=== PATIENT | male | born 1950 | race Caucasian/White ===

== ENCOUNTER 2018-09-04 03:15 | Inpatient (IN) | payer MEDICARE ==
[2018-09-04] MEDS ORDERED: NITROGLYCERIN SL TABS 0.4 MG TAB SUBLINGUAL PRN ×2 (03:25→05:34)
[2018-09-04] MEDS ORDERED: HEPARIN SODIUM,PORCINE 5,000 UNIT/ML 1 ML VIAL IV ONE (03:26)
[2018-09-04] MEDS ORDERED: MORPHINE SULFATE 4 MG/ML SYRINGE IV STA ×2 (03:26→03:52)
[2018-09-04] MEDS ORDERED: HEPARIN SODIUM,PORCINE 5,000 UNIT/ML 1 ML VIAL IV PRN (03:26)
[2018-09-04] MEDS ORDERED: HEPARIN SOD,PORK IN 0.45% NACL 25,000 UNIT in 0.45% NACL 1 250ML.BAG IV SCH (03:30)
--- NOTE | 2018-09-04 03:30 | ED ---
Chest Pain HPI - General Chief Complaint: Chest Pain Stated Complaint: Stemi Time Seen by Provider: 09/04/18 03:18 Source: patient, EMS Mode of arrival: EMS Limitations: no limitations - History of Present Illness Initial Comments: This patient is a 68-year-old man, with history of previous CABG here approximately 11 years ago, who states that he developed substernal chest pain, pressure sensation, shortly after midnight tonight. The patient states that he was just resting at the time. The patient did have some associated dyspnea and some nausea. The patient's symptoms became more severe and he phoned EMS. EMS did give aspirin, nitroglycerin, and fentanyl with only minimal change of the patient's symptoms. MD Complaint: chest pain Onset/Timin -: hour(s) Onset: during rest Pain Location: substernal Severity: severe Quality: heaviness Consistency: constant Improves With: nothing Worsens With: nothing Anginal Symptoms: nausea, diaphoresis, dyspnea Treatments Prior to Arrival: aspirin, nitroglycerin - Related Data Home Medications Medication Instructions Recorded Confirmed Aspirin EC [Ecotrin Low Dose] 81 mg PO DAILY 09/04/18 09/04/18 Budesonide-Formot 160-4.5 Mcg 2 puff INHALATION BID 09/04/18 09/04/18 [Symbicort 160-4.5 Mcg Inhaler] Metoprolol Tartrate [Lopressor] 50 mg PO BID 09/04/18 09/04/18 Simvastatin 40 mg PO DAILY 09/04/18 09/04/18 Tamsulosin HCl [Flomax] 2 tab PO HS 09/04/18 09/04/18 Tiotropium [place] [Spiriva 1 spray INHALATION ONCE 09/04/18 09/04/18 Respimat] Allergies Allergy/AdvReac Type Severity Reaction Status Date / Time No Known Allergies Allergy Verified 09/04/18 03:26 Review of Systems ROS Statement: Those systems with pertinent positive or pertinent negative responses have been documented in the HPI. ROS Other: All systems not noted in ROS Statement are negative. Constitutional: Denies: fever, chills Respiratory: Reports: dyspnea. Denies: cough Cardiovascular: Reports: chest pain. Denies: palpitations, orthopnea, syncope Gastrointestinal: Reports: nausea. Denies: abdominal pain, vomiting, diarrhea, melena, hematochezia Genitourinary: Denies: dysuria, hematuria Musculoskeletal: Denies: back pain Skin: Denies: rash Neurological: Denies: headache, weakness, numbness EKG Findings - EKG Results: EKG: interpreted by DEBORAHD, sinus rhythm (Rate 75 bpm), normal axis - MO, Pacemaker, Normal: Myocardial infarction: inferior MO (old age indeterminate), lateral MO (acute or recent) Past Medical History History of Any Multi-Drug Resistant Organisms: None Reported Past Surgical History: Coronary Bypass/CABG Past Psychological History: No Psychological Hx Reported Smoking Status: Current every day smoker Past Alcohol Use History: Occasional Past Drug Use History: None Reported General Exam Limitations: no limitations General appearance: alert, in distress Head exam: Present: atraumatic, normocephalic Eye exam: Present: normal appearance. Absent: scleral icterus, conjunctival injection ENT exam: Present: normal oropharynx Neck exam: Present: normal inspection Respiratory exam: Present: normal lung sounds bilaterally. Absent: respiratory distress, wheezes, rales, rhonchi, stridor Cardiovascular Exam: Present: regular rate, normal rhythm, normal heart sounds. Absent: systolic murmur, diastolic murmur, rubs, gallop GI/Abdominal exam: Present: soft. Absent: distended, tenderness, guarding, rebound, rigid, mass Extremities exam: Present: normal inspection, normal capillary refill. Absent: pedal edema, calf tenderness Back exam: Present: normal inspection. Absent: CVA tenderness (R), CVA tenderness (L) Neurological exam: Present: alert Skin exam: Present: warm, intact, normal color, diaphoretic. Absent: rash Course Vital Signs 09/04/18 09/04/18 09/04/18 03:19 03:34 03:40 Temperature 97.4 F L Pulse Rate 78 72 75 Respiratory 20 20 20 Rate Blood Pressure 99/78 83/59 93/70 O2 Sat by Pulse 92 L 95 95 Oximetry 09/04/18 09/04/18 09/04/18 03:48 03:57 03:59 Temperature 97.4 F L Pulse Rate 73 74 73 Respiratory 20 20 22 Rate Blood Pressure 103/86 120/70 88/71 O2 Sat by Pulse 96 97 98 Oximetry 09/04/18 04:07 Temperature Pulse Rate 74 Respiratory 20 Rate Blood Pressure 95/75 O2 Sat by Pulse 97 Oximetry - Reevaluation(s) Reevaluation #1: 09/04/18 03:30 The case is discussed with cardiology. The odd job laborer was activated. Also discussed case with the interventional list. Critical Care Time Critical Care Time: Yes (35 minutes) Disposition Clinical Impression: ST elevation myocardial infarction (STEMI) Disposition: ADMITTED IP TO THIS HOSP Condition: Critical Is patient prescribed a controlled substance at d/c from ED?: No Referrals: Kylee Dean DO [Primary Care Provider] - 1-2 days
[2018-09-04] MEDS ORDERED: ATORVASTATIN 80 MG TAB PO STA (03:32)
[2018-09-04 03:36] LABS: Basophils # (A) 0.1 k/uL (0-0.2); Basophils % (A) 1 %; Eosinophils # (A) 0.2 k/uL (0-0.7); Eosinophils % (A) 2 %; HCT 47.6 % (39.0-53.0); HGB 15.3 gm/dL (13.0-17.5); Lymphocytes # (A) 1.5 k/uL (1.0-4.8); Lymphocytes % (A) 16 %; MCH 32.6 pg (25.0-35.0); MCHC 32.2 g/dL (31.0-37.0); MCV 101.1 fL (80.0-100.0); Macrocytosis Slight; Mean Platelet Volume 6.5; Monocytes # (A) 0.5 k/uL (0-1.0); Monocytes % (A) 5 %; Neutrophils # (A) 7.2 k/uL (1.3-7.7); Neutrophils % (A) 75 %; Platelet Count 219 k/uL (150-450); RBC 4.71 m/uL (4.30-5.90); RDW 13.6 % (11.5-15.5); WBC 9.7 k/uL (3.8-10.6)
--- NOTE | 2018-09-04 03:40 | XR ---
EXAM: XR Chest, 1 View CLINICAL HISTORY: ITS.REASON XR Reason: stemi TECHNIQUE: Frontal view of the chest. COMPARISON: None FINDINGS: Hardware: None. Lungs/pleura: Left basilar opacity may represent atelectasis versus pneumonia. No pleural effusion or pneumothorax. Right costophrenic angle is not entirely included in the [id number]. Heart/mediastinum: Enlargement of the cardiomediastinal silhouette. Median sternotomy changes. Soft tissues: Unremarkable. Bones: No acute fracture. Degenerative changes of the visualized left acromioclavicular joint. Upper abdomen: Normal. IMPRESSION: Left basilar opacity may represent atelectasis versus pneumonia.
[2018-09-04 03:48] LABS: Albumin 3.7 g/dL (3.5-5.0); Calcium 9.1 mg/dL (8.4-10.2); Potassium 4.9 mmol/L (3.5-5.1); Total Bilirubin 0.5 mg/dL (0.2-1.3); Total Protein 6.3 g/dL (6.3-8.2)
[2018-09-04 03:51] LABS: INR 0.9 (<1.2); Prothrombin Time 9.7 sec (9.0-12.0)
[2018-09-04 03:52] LABS: Partial Thromboplastin Time 27.6 sec (22.0-30.0)
[2018-09-04] MEDS ORDERED: HEPARIN SODIUM,PORCINE 30 ML 30 ML ONE (04:20)
[2018-09-04] MEDS ORDERED: LIDOCAINE 1% INJ 10MG/ML (20 ML MDV) ONE (04:20)
[2018-09-04] MEDS ORDERED: fentaNYL (PF) 50 MCG/ML 2 ML AMP ONE (04:20)
[2018-09-04] MEDS ORDERED: LIDOCAINE 2% INJ 20 MG/ML SQ ONE (04:22)
[2018-09-04] MEDS ORDERED: NOREPINEPHRINE 4 MG in SODIUM CHLORIDE 0.9% 250 ML IV ONE (04:35)
[2018-09-04] MEDS ORDERED: SODIUM CHLORIDE 0.9% 500 ML 500 ML IV ONE ×2 (04:35→05:04)
[2018-09-04] MEDS ORDERED: SODIUM CHLORIDE 0.9% 1,000 ML IV ONE ×2 (04:35→04:36)
[2018-09-04 04:38] LABS: Creatine Kinase MB 5.1 ng/mL (0.0-2.4)
[2018-09-04] MEDS: fentaNYL (PF) 50 MCG/ML 2 ML AMP IVP ONE ×2 (04:38→05:09)
[2018-09-04] MEDS ORDERED: BIVALIRUDIN BOLUS 250 MG/50 ML IV ONE (04:56)
[2018-09-04] MEDS ORDERED: BIVALIRUDIN 250 MG in SODIUM CHLORIDE 0.9% 50 ML IV ONE (04:57)
[2018-09-04] MEDS ORDERED: HYDROmorphone 1 MG/ML 1 ML SYRINGE ONE (04:59)
[2018-09-04] MEDS ORDERED: HYDROmorphone 1 MG/ML 1 ML SYRINGE IVP ONE (05:00)
[2018-09-04] MEDS ORDERED: IOPAMIDOL-370 125ML BTL INJ ONE (05:03)
[2018-09-04] MEDS: niCARdipine Syringe (1,000 mcg/10 mL) INTRACORON ONE ×4 (05:09→05:28)
[2018-09-04] MEDS ORDERED: MIDAZOLAM (PF) 2 MG/2 ML VIAL IVP ONE (05:10)
[2018-09-04 05:12] LABS: Troponin I 0.191 ng/mL (0.000-0.034)
[2018-09-04] MEDS ORDERED: CLOPIDOGREL 75 MG TAB ONE (05:17)
[2018-09-04] MEDS ORDERED: CLOPIDOGREL 75 MG TAB PO ONE (05:19)
[2018-09-04] MEDS ORDERED: NITROGLYCERIN 1000MCG/10ML SYRINGE INTRACORON ONE (05:28)
[2018-09-04] MEDS ORDERED: FUROSEMIDE 10 MG/ML 4 ML VIAL ONE (05:30)
[2018-09-04] MEDS ORDERED: FUROSEMIDE 10 MG/ML 4 ML VIAL IV ONE (05:33)
[2018-09-04] MEDS ORDERED: RX INFO: IV CONTRAST WAS GIVEN 1 EACH MISC MISCELLANE PRN (05:34)
[2018-09-04] MEDS ORDERED: MAG HYDROX/AL HYDROX/SIMETH 30 ML CUP PO PRN (05:34)
[2018-09-04] MEDS ORDERED: ZOLPIDEM 5 MG TAB PO PRN (05:34)
[2018-09-04] MEDS ORDERED: IOPAMIDOL-370 125ML BTL PO ONE (05:34)
[2018-09-04] MEDS ORDERED: ATROPINE SULFATE 0.1 MG/ML 10ML SYRINGE IV PRN (05:34)
[2018-09-04] MEDS ORDERED: ONDANSETRON 4 MG/2 ML VIAL ONE (05:40)
[2018-09-04] MEDS ORDERED: ONDANSETRON 4 MG/2 ML VIAL IVP ONE (05:41)
[2018-09-04] MEDS ORDERED: SODIUM CHLORIDE 0.9% 1,000 ML IV SCH (05:45)
[2018-09-04] MEDS ORDERED: METOCLOPRAMIDE 5 MG/ML 2 ML VIAL ONE (05:58)
[2018-09-04] MEDS ORDERED: METOCLOPRAMIDE 5 MG/ML 2 ML VIAL IVP STA (06:03)
[2018-09-04 06:26] LABS: Glucose,Whole Blood 168 mg/dL (75-99)
[2018-09-04 06:38] VITALS: BMI 43.0
--- NOTE | 2018-09-04 09:49 | CONS ---
CONSULTATION CHIEF COMPLAINT: Chest pain. Ricco is a 68-year-old gentleman with history of coronary artery disease, status post CABG, hypertension, dyslipidemia, who presented to hospital with sudden onset chest pain early this morning. He describes it as a 10/10 chest pain at rest, radiated to his back and down his arms. Initial EKG showed sinus rhythm with right bundle branch block with acute inferior and inferolateral myocardial infarction. At the time of my evaluation, patient was in was hypotensive and seemed in rest in significant pain. We gave him IV fluids and started him on Levophed and patient is already on IV heparin. The patient was advised to undergo emergent cardiac catheterization. He was explained of risks, benefits and alternatives findings strike that. MEDICATIONS: Medications at home included Spiriva, Flomax, Lopressor, Symbicort, aspirin and simvastatin. ALLERGIES: No known drug allergies. FAMILY HISTORY: Negative for premature coronary artery disease. SOCIAL HISTORY: Negative for current smoking, EtOH abuse, or drug abuse. REVIEW OF SYSTEMS: HEENT is unremarkable. CARDIAC: As described above. RESPIRATORY: As described above. GI: Negative. GENITOURINARY: Negative. MUSCULOSKELETAL: Significant for arthritis. PSYCHOSOCIAL: Negative. ENDOCRINE: Negative. HEMATOLOGICAL: Negative. DERMATOLOGY: Negative, CONSTITUTIONAL; Negative. ONCOLOGICAL: Negative. PHYSICAL EXAMINATION: On exam, heart rate is 70 beats per minute. Blood pressure is 80/70. Respiratory rate is 24. Chest exam reveals diminished air entry at the bases. I do not hear any crackles or rhonchi. Heart exam reveals first and second heart sounds. No gallop. No murmur. Abdomen is soft. Exam of extremities did not reveal any edema. Peripheral pulses are palpable. LABS: Labs show that the creatinine is 1. Hemoglobin is 15.3, potassium is 4.9, AST ALT are within normal limits. ASSESSMENT: 1. Acute inferolateral myocardial infarction. 2. Coronary artery disease, status post coronary artery bypass grafting. 3. Dyslipidemia. 4. Cardiogenic shock. PLAN: Patient will undergo emergent cardiac catheterization with a view to performing primary angioplasty. He had been explained of risks, benefits and alternatives. MMODL / SATISHN: [id number] /
--- NOTE | 2018-09-04 10:01 | CC ---
CARDIAC CATHETERIZATION REPORT CARDIAC CATHETERIZATION: On Ricco Gutierres 05/15/2002 10/01/2002 indication acute inferior wall myocardial infarction. PROCEDURE NOTE: After obtaining informed consent, left heart catheterization and coronary angiogram were performed via the right femoral artery using standard [place] catheters the patient tolerated the procedure well without any obvious immediate complications. FINDINGS: 1. Hemodynamics what was the LVEDP. Left ventricular end-diastolic pressure was elevated at 28 to 32 mm. There is no significant gradient across aortic valve. LEFT VENTRICULOGRAM: Ventriculogram is not performed #3. ANGIOGRAPHIC DATA: 1. Left main coronary artery left main coronary artery is a normal-sized vessel and is free of stenosis. Divides into left anterior descending coronary artery and circumflex coronary artery circumflex coronary artery gives off a large caliber OM branch there, which appears as if it is filled with either thrombus appears full with thrombus. The crow circumflex coronary artery has a proximal stenosis. There are extensive collaterals to the distal right LAD shows a 90% stenosis in its proximal and midportion next selective injection of the right coronary artery is completely occluded in its proximal part. Next selective injection of the bypass grafts BELL to LAD is occluded is patent and the flow appears normal despite and the crow vessel is not very well visualized. 2. Venous graft to the right coronary artery appears occluded venous graft to the OM appears occluded. CONCLUSIONS: 1. [place] 3-vessel coronary artery disease as described above. 2. Patent BELL to LAD. 3. Occluded venous graft to the right and occluded venous graft to the OM. PLAN: I reviewed angiographic data with Dr. Polanco, the on-call fishing boat mate. We believe that the which acutely occluded the myocardial infarction may be related to the acute occlusion of the venous graft to the right first and we will make an attempt to do angioplasty of that and the other option we have is to go after the crow OM. MMODL / IJN: [id number] /
--- NOTE | 2018-09-04 10:25 | PTCA ---
PERCUTANEOUSTRANS CORORONARY ANGIOGRAPHY DATE OF SERVICE: 09/04/2018 PERFORMING PHYSICIAN: Bobby Polanco MD, Billing Representative. PROCEDURE PERFORMED: 1. Aspiration thrombectomy from the left circumflex coronary artery. 2. Successful stenting of the distal left circumflex using 2.5 x 15 mm Xience drug- eluting stent. 3. Successful stenting of the mid left circumflex using a 3.0 x 38 mm Xience drug- eluting stent. 4. Successful stenting of the proximal left circumflex using 3.5 x 38 mm drug-eluting stent. INDICATION: This is a 68-year-old gentleman who sees Dr. Gleason in the office as an outpatient with known history of coronary artery disease and status post coronary artery grafting where he received BELL to LAD, SVG to the left circumflex, and SVG to RCA. He presented to the hospital with chest discomfort and was diagnosed with acute inferior ST-elevation myocardial infarction. He underwent heart catheterization by Dr. Gleason and was found to have chronic total occlusion of SVG to left circumflex and SVG to right coronary artery with patent BELL to LAD. He was found to have large clot in his left circumflex, which we felt was the culprit. Because of that, PCI was advised. APPROACH: Right common femoral artery. COMPLICATION: None. LEVEL OF SEDATION: Moderate with sedation time of 55 minutes. PROCEDURE DESCRIPTION: Please refer to diagnostic heart catheterization was performed by Dr. Gleason earlier today. Anticoagulation was initiated using Angiomax. Subsequently, I did engage the left main using XB 3.5 guide. The lesion in the left circumflex was crossed using a run-through wire. After that, I did aspiration thrombectomy from the left circumflex with extraction of small amount of clots. After that, I did balloon angioplasty using 3.0 x 15 mm balloon where I ballooned a whole OM branch of left circumflex. After that, I did deploy 3 stents in the left circumflex. Distally, I deployed 2.5 x 15 mm stent. In the mid, I deployed 3.0 x 38 mm and proximally 3.5 x 38 mm Xience drug- eluting stent. The stents were deployed under fluoroscopy guidance and positioned under fluoroscopy guidance. By the end, we got CORINE 2 flow in the left circumflex. POSTPROCEDURE MANAGEMENT: 1. Dual anti-platelet therapy. 2. Risk factors modifications. 3. Follow up with the patient. ANGIEODL / IJN: [id number] /
--- NOTE | 2018-09-04 10:33 | P.HPIM ---
History of Present Illness This is a pleasant 68 years old male with past medical history of coronary artery disease status post CABG, COPD, BPH. Hypertension and hyperlipidemia. Presents with chest pain. Found to have STEMI. Patient has been evaluated by shellfish meat separator operator. Cardiac cath showing stenosis and thrombosis of the OM coronary branch, proximal stenosis of circumflex coronary artery and occluded venous graft to the right coronary artery.. Cardiology considering angioplasty. He is a status post stent placement On admission Chest x-ray: Left basilar atelectasis, rather than infiltrate. Labs reviewed showing no leukocytosis. Chest CBC is unremarkable. Creatinine 1.0. Sodium 139. Troponin is elevated at 0.19. Review of Systems CONSTITUTIONAL: No fever, no malaise, no fatigue. HEENT: No recent visual problems or hearing problems. Denied any sore throat. CARDIOVASCULAR: No orthopnea, PND, no palpitations, no syncope. PULMONARY: No shortness of breath, no cough, no hemoptysis. GASTROINTESTINAL: No diarrhea, no nausea, no vomiting, no abdominal pain. Normoactive bowel sounds. NEUROLOGICAL: No headaches, no weakness, no numbness. HEMATOLOGICAL: Denies any bleeding or petechiae. GENITOURINARY: Denies any burning micturition, frequency, or urgency. MUSCULOSKELETAL/RHEUMATOLOGICAL: Denies any joint pain, swelling, or any muscle pain. ENDOCRINE: Denies any polyuria or polydipsia. Past Medical History Past Medical History: Coronary Artery Disease (CAD), COPD, Myocardial Infarction (UT), Prostate Disorder Additional Past Medical History / Comment(s): UT in 2007, BPH. Last Myocardial Infarction Date:: 09/04/18 History of Any Multi-Drug Resistant Organisms: None Reported Past Surgical History: Coronary Bypass/CABG, Heart Catheterization, Heart Catheterization With Stent Additional Past Surgical History / Comment(s): 2007 CABG 3 vessels, Past Anesthesia/Blood Transfusion Reactions: No Reported Reaction Date of Last Stent Placement:: 09/04/18 Past Psychological History: No Psychological Hx Reported Additional Psychological History / Comment(s): Pt resides with his spouse of 51 yrs. He is independent. Smoking Status: Current every day smoker Past Alcohol Use History: Occasional Additional Past Alcohol Use History / Comment(s): Pt started smoking in 1963 and smokes alittle less than a ppd. Past Drug Use History: None Reported - Past Family History Father Family Medical History: Cancer Additional Family Medical History / Comment(s): Father of metastatic prostate cancer. Mother Family Medical History: Diabetes Mellitus Additional Family Medical History / Comment(s): Arthritis. Medications and Allergies Home Medications Medication Instructions Recorded Confirmed Type Aspirin EC [Ecotrin Low Dose] 81 mg PO DAILY 09/04/18 09/04/18 History Budesonide-Formot 160-4.5 Mcg 2 puff INHALATION BID 09/04/18 09/04/18 History [Symbicort 160-4.5 Mcg Inhaler] Metoprolol Tartrate [Lopressor] 50 mg PO BID-W/MEALS 09/04/18 09/04/18 History Simvastatin 40 mg PO HS 09/04/18 09/04/18 History Tamsulosin HCl [Flomax] 0.8 mg PO HS 09/04/18 09/04/18 History Tiotropium [place] [Spiriva 1 spray INHALATION HS 09/04/18 09/04/18 History Respimat] Allergies Allergy/AdvReac Type Severity Reaction Status Date / Time No Known Allergies Allergy Verified 09/04/18 07:50 Physical Exam Vitals: Vital Signs Temp Pulse Pulse Resp BP BP Pulse Ox 09/04/18 10:00 76 17 83/62 94 L 09/04/18 09:30 76 10 L 102/73 93 L 09/04/18 09:00 74 16 100/74 93 L 09/04/18 08:30 76 8 L 98/65 93 L 09/04/18 08:00 97.7 F 78 12 98/65 93 L 09/04/18 07:30 79 19 96/67 91 L 09/04/18 07:00 75 18 89/68 91 L 09/04/18 06:30 70 10 L 114/84 92 L 09/04/18 06:20 82 17 99/73 89 L 09/04/18 06:10 79 19 105/90 90 L 09/04/18 06:00 97.6 F 71 7 L 104/69 90 L 09/04/18 05:53 86 23 09/04/18 04:52 97.6 F 09/04/18 04:07 74 20 95/75 97 09/04/18 03:59 73 22 88/71 98 09/04/18 03:57 74 20 120/70 97 09/04/18 03:48 97.4 F L 73 20 103/86 96 09/04/18 03:40 75 20 93/70 95 09/04/18 03:34 72 20 83/59 95 09/04/18 03:19 97.4 F L 78 20 99/78 92 L Intake and Output 09/03/18 09/04/18 09/04/18 22:59 06:59 14:59 Intake Total 1544 300 Output Total 700 1735 Balance 844 -1435 Intake: IV 1544 300 Sodium Chloride 0.9% 1, 150 300 000 ml @ 75 mls/hr IV . [id number] [facility] Rx#:[id number] Output: Urine 700 1735 Other: Weight 131.95 kg GENERAL: The patient is alert and oriented x3, not in any acute distress. Obese HEENT: Pupils are round and equally reacting to light. EOMI. No scleral icterus. No conjunctival pallor. Normocephalic, atraumatic. No pharyngeal erythema. No thyromegaly. CARDIOVASCULAR: S1 and S2 present. No murmurs, rubs, or gallops. PULMONARY: Chest is clear to auscultation, no wheezing or crackles. ABDOMEN: Soft, nontender, nondistended, normoactive bowel sounds. No palpable organomegaly. MUSCULOSKELETAL: No joint swelling or deformity. EXTREMITIES: No cyanosis, clubbing, or pedal edema. NEUROLOGICAL: Gross neurological examination did not reveal any focal deficits. SKIN: No rashes. Results CBC & Chem 7: 09/04/18 03:22 09/04/18 03:22 Labs: Abnormal Lab Results - Last 24 Hours (Table) 09/04/18 09/04/18 09/04/18 Range/Units 03:22 03:22 03:22 MCV 101.1 H (80.0-100.0) fL Chloride 111 H (98-107) mmol/L Carbon Dioxide 20 L (22-30) mmol/L BUN 21 H (9-20) mg/dL Glucose 149 H (74-99) mg/dL POC Glucose (mg/dL) (75-99) mg/dL CK-MB (CK-2) 5.1 H (0.0-2.4) ng/mL Troponin I 0.191 H* (0.000-0.034) ng/mL 09/04/18 Range/Units 06:13 MCV (80.0-100.0) fL Chloride (98-107) mmol/L Carbon Dioxide (22-30) mmol/L BUN (9-20) mg/dL Glucose (74-99) mg/dL POC Glucose (mg/dL) 168 H (75-99) mg/dL CK-MB (CK-2) (0.0-2.4) ng/mL Troponin I (0.000-0.034) ng/mL Thrombosis Risk Factor Assmnt - Choose All That Apply Any of the Below Risk Factors Present?: Yes Each Factor Represents 1 point: Abnormal pulmonary function (COPD), Acute [place], Medical pt on bed rest, Obesity (BMI >25) Other Risk Factors: Yes Each Risk Factor Represents 2 Points: Age 61-74 years, Patient confined to bed Other congenital or acquired thrombophilia - If yes, enter type in comment: No Thrombosis Risk Factor Assessment Total Risk Factor Score: 8 Thrombosis Risk Factor Assessment Level: High Risk Assessment and Plan Assessment: Acute Coronary artery disease. Evaluated by shellfish meat separator operator for angioplasty. Status post stent placement History of coronary artery disease, status post CABG COPD not in acute exacerbation Hypertension Hyperlipidemia History of BPH Plan: This is a pleasant 68 years old male who presents with acute coronary syndrome. Many occluded coronary arteries. Cardiology team did angiogram and angioplasty for the patient with stent placement. Continue with medication as per cardi ology recommendation including antiplatelets, statin and beta gilbert.Labs and medication were reviewed.. Continue same treatment. Continue with symptomatic treatment. Resume home medication. Monitor lytes and vitals. DVT and GI prophylaxis. Further recommendations of the clinical course of the patient
[2018-09-04] MEDS: ASPIRIN 325 MG TAB PO SCH (10:41)
--- NOTE | 2018-09-04 12:38 | ECHOF ---
Referral Reason:stemi MEASUREMENTS -------- HEIGHT: 175.3 cm WEIGHT: 131.5 kg BP: 114/84 IVSd: 1.5 cm (0.6 - 1.1) LVIDd: 4.9 cm (3.9 - 5.3) LVPWd: 1.6 cm (0.6 - 1.1) IVSs: 1.9 cm LVIDs: 4.3 cm LVPWs: 1.9 cm LA Diam: 4.4 cm (2.7 - 3.8) RVIDd: 3.5 cm (< 3.3) Ao Diam: 4.1 cm (2.0 - 3.7) AV Cusp: 2.2 cm (1.5 - 2.6) EPSS: 1.0 cm MV E Cristhian: 0.50 m/s MV DecT: 225 ms MV A Cristhian: 0.86 m/s MV E/A Ratio: 0.58 MV EF SLOPE: 139.23 mm/s (70 - 150) MV EXCURSION: 22.26 mm (> 18.000) FINDINGS -------- Sinus rhythm. This was a technically difficult study with suboptimal views. The left ventricular size is normal. There is moderate concentric left ventricular hypertrophy. O verall left ventricular systolic function is mildly impaired with, an EF between 45 - 50 %. Basal i nferior LV wall motion is hypokinetic. Mid inferior LV wall motion is hypokinetic. Apical infer ior LV wall motion is hypokinetic. The right ventricle is mildly enlarged. The left atrium is mildly dilated. The right atrium was not well visualized. 3 ml of Lumason was utilized for enhancement of images. The aortic valve is trileaflet and appears structurally normal. Mild mitral regurgitation is present. Mild tricuspid regurgitation present. The pulmonic valve was not well visualized. The aortic root is dilated measuring 4.1cm. IVC Not well visulized. There is no pericardial effusion. CONCLUSIONS -------- 1. Sinus rhythm. 2. This was a technically difficult study with suboptimal views. 3. The left ventricular size is normal. 4. There is moderate concentric left ventricular hypertrophy. 5. Overall left ventricular systolic function is mildly impaired with, an EF between 45 - 50 %. 6. Basal inferior LV wall motion is hypokinetic. 7. Mid inferior LV wall motion is hypokinetic. 8. Apical inferior LV wall motion is hypokinetic. 9. The right ventricle is mildly enlarged. 10. The left atrium is mildly dilated. 11. The right atrium was not well visualized. 12. 3 ml of Lumason was utilized for enhancement of images. 13. The aortic valve is trileaflet and appears structurally normal. 14. Mild mitral regurgitation is present. 15. Mild tricuspid regurgitation present. 16. The pulmonic valve was not well visualized. 17. The aortic root is dilated measuring 4.1cm. 18. IVC Not well visulized. 19. There is no pericardial effusion. CIGARETTE PAPER TESTER: Alyssa Jarquin RDCS
[2018-09-04] MEDS: FAMOTIDINE 20 MG TAB PO SCH (20:09)
[2018-09-04] MEDS: METOPROLOL TARTRATE 25 MG TAB PO SCH (20:09)
[2018-09-04] MEDS: ATORVASTATIN 80 MG TAB PO SCH (20:09)
[2018-09-04] MEDS ORDERED: FAMOTIDINE 20 MG/2 ML VIAL IV SCH (21:00)
[2018-09-04] MEDS ORDERED: METOPROLOL TARTRATE 25 MG TAB PO STA (21:35)
[2018-09-04] MEDS ORDERED: DILTIAZEM DRIP BOLUS FROM BAG 1 MG SOLN IV ONE (22:11)
[2018-09-04] MEDS ORDERED: DILTIAZEM 125 MG in SODIUM CHLORIDE 0.9% 100 ML IV SCH (22:15)
[2018-09-05] MEDS ORDERED: IPRATROPIUM-ALBUTEROL 3 ML NEB INHALATION PRN (04:33)
[2018-09-05] MEDS: IPRATROPIUM-ALBUTEROL 3 ML NEB INHALATION SCH ×5 (04:44→20:55)
[2018-09-05] MEDS ORDERED: FUROSEMIDE 10 MG/ML 2 ML VIAL IV STA (04:50)
[2018-09-05] MEDS: CLOPIDOGREL 75 MG TAB PO SCH ×2 (05:08→05:09)
--- NOTE | 2018-09-05 05:12 | XR ---
EXAM: XR Chest, 1 View CLINICAL HISTORY: ITS.REASON XR Reason: shortness of breath TECHNIQUE: Frontal view of the chest. COMPARISON: 09/04/18 0319 hours FINDINGS: Lungs: Minimal left basilar opacity, decreased since the prior. No consolidation. Pleural space: Unremarkable. No pneumothorax. Heart: Stable cardiomediastinal silhouette. Mediastinum: See above. Bones/joints: Sternotomy wires. IMPRESSION: Minimal left basilar opacity, decreased since the prior. Favor mild atelectasis.
[2018-09-05 05:19] LABS: Albumin 3.8 g/dL (3.5-5.0); Calcium 8.9 mg/dL (8.4-10.2); Phosphorus 2.6 mg/dL (2.5-4.5); Total Bilirubin 1.1 mg/dL (0.2-1.3); Total Protein 6.6 g/dL (6.3-8.2)
[2018-09-05 05:22] LABS: Basophils % (A) 0 %; Eosinophils # (A) 0.1 k/uL (0-0.7); Eosinophils % (A) 1 %; HCT 50.4 % (39.0-53.0); HGB 15.9 gm/dL (13.0-17.5); Lymphocytes # (A) 1.3 k/uL (1.0-4.8); Lymphocytes % (A) 11 %; MCH 31.9 pg (25.0-35.0); MCHC 31.6 g/dL (31.0-37.0); MCV 101.1 fL (80.0-100.0); Macrocytosis Slight; Mean Platelet Volume 7.6; Monocytes # (A) 1.1 k/uL (0-1.0); Monocytes % (A) 9 %; Neutrophils # (A) 8.9 k/uL (1.3-7.7); Neutrophils % (A) 77 %; Platelet Count 200 k/uL (150-450); RBC 4.99 m/uL (4.30-5.90); RDW 14.2 % (11.5-15.5); WBC 11.6 k/uL (3.8-10.6)
[2018-09-05] MEDS ORDERED: AMIODARONE 360 MG in DEXTROSE 5% IN WATER 200 ML IV ONE ×2 (07:40)
[2018-09-05] MEDS ORDERED: DEXTROSE 5% IN WATER 100 ML with AMIODARONE 150 MG IV ONE (07:40)
[2018-09-05] MEDS: FAMOTIDINE 20 MG TAB PO SCH ×2 (08:15→23:41)
[2018-09-05] MEDS: ASPIRIN 325 MG TAB PO SCH (08:15)
[2018-09-05] MEDS: METOPROLOL TARTRATE 25 MG TAB PO SCH ×2 (10:02→23:41)
--- NOTE | 2018-09-05 10:17 | P.PN ---
Subjective Progress Note Date: 09/05/18 Principal diagnosis: Acute inferior PR This is a pleasant 68-year-old gentleman who presented to the hospital with chest discomfort and was diagnosed with acute inferior/posterior PR. He underwent an emergent heart catheterization and was found to have disease involving the left circumflex was possible thrombus/dissection of the left circumflex. He underwent stenting of the left circumflex which was very complex. On follow-up with him today, September 052018, he seems to be feeling better. No chest pain at this point. He is short of breath laying flat. No dizziness or l ightheadedness. He went into atrial fibrillation with RVR last night. He was started on Cardizem drip but now the pressure is low. I am going to DC the Cardizem drip and start the patient on amiodarone IV as well as start the patient on oral anticoagulation. He is on dual antiplatelet therapy. Objective - Vital Signs Vital signs: Vital Signs Temp 98.5 F 09/05/18 08:00 Pulse 120 H 09/05/18 08:30 Resp 19 09/05/18 08:30 BP 98/72 09/05/18 08:30 Pulse Ox 95 09/05/18 08:30 Intake & Output 09/04/18 09/05/18 09/05/18 18:59 06:59 18:59 Intake Total 900 1457.5 450 Output Total 2795 905 200 Balance -1895 552.5 250 Weight 131.95 kg 129.9 kg Intake: IV 900 900 150 Sodium Chloride 0.9% 1, 900 900 150 000 ml @ 75 mls/hr IV . [id number] [facility] Rx#:[id number] Intake, IV Titration 57.5 Amount Diltiazem 125 mg In 57.5 Sodium Chloride 0.9% 100 ml @ Per Protocol IV .Q0M [facility] Rx#:[id number] Oral 500 300 Output: Urine 2795 905 200 Other: Voiding Method Indwelling Catheter Indwelling Catheter - Constitutional General appearance: Present: no acute distress - Respiratory Respiratory: bilateral: rales - Cardiovascular Rhythm: irregularly irregular Heart sounds: normal: S1, S2 - Labs CBC & Chem 7: 09/05/18 04:41 09/05/18 04:50 Labs: Abnormal Lab Results - Last 24 Hours (Table) 09/05/18 09/05/18 09/05/18 Range/Units 04:41 04:41 04:50 WBC 11.6 H (3.8-10.6) k/uL MCV 101.1 H (80.0-100.0) fL Neutrophils # 8.9 H (1.3-7.7) k/uL Monocytes # 1.1 H (0-1.0) k/uL Chloride 112 H (98-107) mmol/L Glucose 121 H (74-99) mg/dL AST 325 H (17-59) U/L ALT 75 H (21-72) U/L Troponin I 63.700 H* (0.000-0.034) ng/mL Assessment and Plan Assessment: Assessment #1 acute inferior myocardial infarction #2 paroxysmal atrial fibrillation #3 hypotension Plan #1 DC Cardizem and start amiodarone IV #2 continue dual antiplatelet therapy #3 start oral anticoagulation #4 start the patient on Lasix IV #5 follow-up with the patient
[2018-09-05] MEDS: AMIODARONE 300 MG in DEXTROSE 5% IN WATER 250 ML IV SCH ×2 (14:02)
--- NOTE | 2018-09-05 15:17 | P.PN ---
Subjective This is a pleasant 68 years old male with past medical history of coronary artery disease status post CABG, COPD, BPH. Hypertension and hyperlipidemia. Presents with chest pain. Found to have STEMI. Patient has been evaluated by legal librarian. Cardiac cath showing stenosis and thrombosis of the OM coronary branch, proximal stenosis of circumflex coronary artery and occluded venous graft to the right coronary artery. He underwent stenting in the left circumflex. On 09/05/2018 Patient sitting on the chair. He says that he is feeling fine. No chest pain. He was found to be in A. fib this morning. He was started on Cardizem drip and his pressures were low so the Cardizem drip for DC'd and was started on amiodarone drip. No cough no shortness of breath Objective - Vital Signs Vital signs: Vital Signs Temp 97.5 F L 09/05/18 12:00 Pulse 92 09/05/18 13:30 Resp 19 09/05/18 13:30 BP 99/64 09/05/18 13:30 Pulse Ox 93 L 09/05/18 13:30 Intake & Output 09/04/18 09/05/18 09/05/18 18:59 06:59 18:59 Intake Total 900 1457.5 690 Output Total 2795 905 500 Balance -1895 552.5 190 Weight 131.95 kg 129.9 kg Intake: IV 900 900 150 Sodium Chloride 0.9% 1, 900 900 150 000 ml @ 75 mls/hr IV . [id number] [facility] Rx#:[id number] Intake, IV Titration 57.5 Amount Diltiazem 125 mg In 57.5 Sodium Chloride 0.9% 100 ml @ Per Protocol IV .Q0M [facility] Rx#:[id number] Oral 500 540 Output: Urine 2795 905 500 Other: Voiding Method Indwelling Catheter Indwelling Catheter - Exam On exam, alert and oriented x3. HEENT: Conjunctivae normal. eyes normal. NECK: No JVD. No thyroid enlargement. No LNs CARDIOVASCULAR: S1, S2 muffled. No murmur RESPIRATION: Breath sounds diminished in the bases. No rhonchi or crackles. No bronchial breathing. ABDOMEN: Soft, nontender . No guarding. no masses palpable. No ascites, No hepatosplenomegaly.Bowel sounds heard. LEGS: No edema. no swelling NERVOUS SYSTEM: Cranial N 2-12 grossly normal. Moves all 4 limbs. No focal deficits. No sensory deficit. No signs of cerebellar dysfucntion. Skin: no ulcer no rash - Labs CBC & Chem 7: 09/05/18 04:41 09/05/18 04:50 Labs: Abnormal Lab Results - Last 24 Hours (Table) 09/05/18 09/05/18 09/05/18 Range/Units 04:41 04:41 04:50 WBC 11.6 H (3.8-10.6) k/uL MCV 101.1 H (80.0-100.0) fL Neutrophils # 8.9 H (1.3-7.7) k/uL Monocytes # 1.1 H (0-1.0) k/uL Chloride 112 H (98-107) mmol/L Glucose 121 H (74-99) mg/dL AST 325 H (17-59) U/L ALT 75 H (21-72) U/L Troponin I 63.700 H* (0.000-0.034) ng/mL 09/05/18 Range/Units 10:52 WBC (3.8-10.6) k/uL MCV (80.0-100.0) fL Neutrophils # (1.3-7.7) k/uL Monocytes # (0-1.0) k/uL Chloride (98-107) mmol/L Glucose (74-99) mg/dL AST (17-59) U/L ALT (21-72) U/L Troponin I 53.100 H* (0.000-0.034) ng/mL Assessment and Plan Assessment: STEMI with stent placement in the left circumflex Proximal A. fib [id number] History of coronary artery disease, status post CABG COPD not in acute exacerbation Hypertension Hyperlipidemia History of BPH Plan - Continue amiodarone as per cardiology recommendation - Patient was started on xarelto - He is on dual antiplatelets status post stent placement - We'll continue current medical care - We will follow up on the patient
[2018-09-05] MEDS: RIVAROXABAN 15 MG TAB PO SCH (18:14)
[2018-09-05] MEDS: FUROSEMIDE 10 MG/ML 2 ML VIAL IV SCH (23:40)
[2018-09-05] MEDS: ATORVASTATIN 80 MG TAB PO SCH (23:40)
[2018-09-06 06:48] LABS: HCT 43.8 % (39.0-53.0); HGB 13.9 gm/dL (13.0-17.5); MCH 32.3 pg (25.0-35.0); MCHC 31.8 g/dL (31.0-37.0); MCV 101.5 fL (80.0-100.0); Macrocytosis Slight; Mean Platelet Volume 6.9; Platelet Count 190 k/uL (150-450); RBC 4.31 m/uL (4.30-5.90); RDW 14.5 % (11.5-15.5); WBC 9.2 k/uL (3.8-10.6)
[2018-09-06 07:00] LABS: Calcium 8.8 mg/dL (8.4-10.2); Potassium 4.1 mmol/L (3.5-5.1)
[2018-09-06] MEDS: IPRATROPIUM-ALBUTEROL 3 ML NEB INHALATION SCH ×4 (08:12→20:15)
[2018-09-06] MEDS ORDERED: AMIODARONE 200 MG TAB PO SCH (09:00)
[2018-09-06] MEDS: METOPROLOL TARTRATE 25 MG TAB PO SCH ×2 (09:32→20:16)
[2018-09-06] MEDS: CLOPIDOGREL 75 MG TAB PO SCH (09:32)
[2018-09-06] MEDS: FUROSEMIDE 10 MG/ML 2 ML VIAL IV SCH ×2 (09:32→20:16)
[2018-09-06] MEDS: FAMOTIDINE 20 MG TAB PO SCH ×2 (09:32→20:16)
[2018-09-06] MEDS: ASPIRIN 325 MG TAB PO SCH (09:42)
--- NOTE | 2018-09-06 12:55 | P.PN ---
Subjective Progress Note Date: 09/06/18 This is a pleasant 68-year-old gentleman who presented to the hospital with inferior posterior myocardial infarction, he underwent an emergent heart catheterization and was found to have disease involving the left circumflex with possible thrombus/dissection of the circumflex artery. Subsequently he underwent stenting of the circumflex. He was seen and examined today on the cardiac unit. Sitting up in the chair at bedside. He denies any chest discomfort, still mildly short of breath but overall breathing is significantly improved according to the patient. Blood pressure 94/60 with a heart rate of 90, 94% on room air. White blood cell count 9.2, hemoglobin 13.9, platelet count 190. Sodium 138, potassium 4.1, BUN 14 and creatinine 1.0. The patient continues to be in atrial fibrillation, early this morning heart rate in the 1 teens, at present his heart rate is 90. Objective - Vital Signs Vital signs: Vital Signs Temp 97.9 F 09/06/18 04:00 Pulse 100 09/06/18 11:40 Resp 24 09/06/18 04:00 BP 94/68 09/06/18 04:00 Pulse Ox 94 L 09/06/18 04:00 Intake & Output 09/05/18 09/06/18 09/06/18 18:59 06:59 18:59 Intake Total 990 360 Output Total 850 350 Balance 140 -350 360 Weight 128.3 kg Intake: IV 150 Sodium Chloride 0.9% 1, 150 000 ml @ 75 mls/hr IV . [id number] [facility] Rx#:[id number] Oral 840 360 Output: Urine 850 350 Other: Voiding Method Indwelling Catheter - Exam On exam, alert and oriented x3. HEENT: Conjunctivae normal. eyes normal. NECK: No JVD. No thyroid enlargement. No LNs CARDIOVASCULAR: S1, S2 muffled. No murmur RESPIRATION: Breath sounds diminished in the bases. No rhonchi or crackles. No bronchial breathing. ABDOMEN: Soft, nontender . No guarding. no masses palpable. No ascites, No hepatosplenomegaly.Bowel sounds heard. LEGS: No edema. no swelling NERVOUS SYSTEM: Cranial N 2-12 grossly normal. Moves all 4 limbs. No focal deficits. No sensory deficit. No signs of cerebellar dysfucntion. Skin: no ulcer no rash - Labs CBC & Chem 7: 09/06/18 06:15 09/06/18 06:15 Labs: Abnormal Lab Results - Last 24 Hours (Table) 09/06/18 09/06/18 Range/Units 06:15 06:15 MCV 101.5 H (80.0-100.0) fL Chloride 108 H (98-107) mmol/L Glucose 110 H (74-99) mg/dL Assessment and Plan Plan: Assessment and plan #1 STEMI with stent placement in the left circumflex #2 Proximal A. fib #3 Hypotension #4 History of coronary artery disease, status post CABG #5 COPD not in acute exacerbation #6 Hypertension #7 Hyperlipidemia #8 History of BPH Plan We will give the patient one more dose of IV Lasix and change him over to oral diuretics. Repeat chest x-ray in the morning. DNP note has been reviewed, I agree with a documented findings and plan of care. Patient was seen and examined.
--- NOTE | 2018-09-06 14:41 | P.PN ---
Subjective This is a pleasant 68 years old male with past medical history of coronary artery disease status post CABG, COPD, BPH. Hypertension and hyperlipidemia. Presents with chest pain. Found to have STEMI. Patient has been evaluated by factory expert. Cardiac cath showing stenosis and thrombosis of the OM coronary branch, proximal stenosis of circumflex coronary artery and occluded venous graft to the right coronary artery. He underwent stenting in the left circumflex. On 09/05/2018 Patient sitting on the chair. He says that he is feeling fine. No chest pain. He was found to be in A. fib this morning. He was started on Cardizem drip and his pressures were low so the Cardizem drip for DC'd and was started on amiodarone drip. No cough no shortness of breath 09/06/2018 Patient was transferred out of the ICU. He says that his shortness of breath is better he doesn't have any chest pain. His heart is still high Objective - Vital Signs Vital signs: Vital Signs Temp 99.1 F 09/06/18 12:00 Pulse 100 09/06/18 12:00 Resp 24 09/06/18 12:00 BP 90/60 09/06/18 12:00 Pulse Ox 94 L 09/06/18 12:00 Intake & Output 09/05/18 09/06/18 09/06/18 18:59 06:59 18:59 Intake Total 990 600 Output Total 850 350 Balance 140 -350 600 Weight 128.3 kg Intake: IV 150 Sodium Chloride 0.9% 1, 150 000 ml @ 75 mls/hr IV . [id number] [facility] Rx#:[id number] Oral 840 600 Output: Urine 850 350 Other: Voiding Method Indwelling Catheter Indwelling Catheter - Exam On exam, alert and oriented x3. HEENT: Conjunctivae normal. eyes normal. NECK: No JVD. No thyroid enlargement. No LNs CARDIOVASCULAR: S1-S2 positive RESPIRATION: Breath sounds diminished in the bases. No rhonchi or crackles. No bronchial breathing. ABDOMEN: Soft, nontender . No guarding. no masses palpable. No ascites, No hepatosplenomegaly.Bowel sounds heard. LEGS: No edema. no swelling NERVOUS SYSTEM: Cranial N 2-12 grossly normal. Moves all 4 limbs. No focal deficits. No sensory deficit. No signs of cerebellar dysfucntion. Skin: no ulcer no rash - Labs CBC & Chem 7: 09/06/18 06:15 09/06/18 06:15 Labs: Abnormal Lab Results - Last 24 Hours (Table) 09/06/18 09/06/18 Range/Units 06:15 06:15 MCV 101.5 H (80.0-100.0) fL Chloride 108 H (98-107) mmol/L Glucose 110 H (74-99) mg/dL Assessment and Plan Assessment: STEMI with stent placement in the left circumflex Proximal A. fib [id number] Episode of epistaxis earlier in the morning today History of coronary artery disease, status post CABG COPD not in acute exacerbation Hypertension Hyperlipidemia History of BPH Plan -Amiodarone was converted to oral - Patient on antiplatelet and anticoagulant - Patient apparently had a episode of epistaxis this morning. It has resolved right now. Is probably because of the oxygen that he was getting through the nasal cannula. Oxygen is off right now - IV Lasix, her to oral - We'll continue to monitor Time with Patient: Less than 30
[2018-09-06] MEDS: RIVAROXABAN 15 MG TAB PO SCH (18:40)
[2018-09-06] MEDS: AMIODARONE 300 MG in DEXTROSE 5% IN WATER 250 ML IV SCH ×2 (20:07)
[2018-09-06] MEDS: ATORVASTATIN 80 MG TAB PO SCH (20:16)
[2018-09-07] MEDS: IPRATROPIUM-ALBUTEROL 3 ML NEB INHALATION SCH ×4 (07:50→20:39)
[2018-09-07 07:52] LABS: HCT 44.6 % (39.0-53.0); HGB 14.4 gm/dL (13.0-17.5); MCH 32.4 pg (25.0-35.0); MCHC 32.2 g/dL (31.0-37.0); MCV 100.9 fL (80.0-100.0); Macrocytosis Slight; Mean Platelet Volume 7.1; Platelet Count 197 k/uL (150-450); RBC 4.42 m/uL (4.30-5.90); RDW 13.8 % (11.5-15.5); WBC 8.8 k/uL (3.8-10.6)
[2018-09-07 08:05] LABS: Calcium 8.7 mg/dL (8.4-10.2); Potassium 3.9 mmol/L (3.5-5.1)
--- NOTE | 2018-09-07 08:19 | XR ---
EXAMINATION TYPE: XR chest 2V DATE OF EXAM: 09/07/2018 COMPARISON: 09/05/2018 TECHNIQUE: PA and lateral views submitted. HISTORY: Shortness of breath FINDINGS: Heart is enlarged and is bilateral consolidation. Biapical pleural thickening. Postsurgical changes s een. Arthropathy of the shoulders. IMPRESSION: 1. Bilateral consolidation and interstitial pattern correlate for CHF otherwise consider pneumonia.
[2018-09-07] MEDS: FUROSEMIDE 20 MG TAB PO SCH ×2 (08:55→17:57)
[2018-09-07] MEDS: FAMOTIDINE 20 MG TAB PO SCH ×2 (08:55→19:50)
[2018-09-07] MEDS: ASPIRIN 81 MG PO SCH (08:56)
[2018-09-07] MEDS: CLOPIDOGREL 75 MG TAB PO SCH (08:56)
[2018-09-07] MEDS: METOPROLOL TARTRATE 25 MG TAB PO SCH ×2 (08:56→19:50)
--- NOTE | 2018-09-07 14:32 | P.PN ---
Subjective Progress Note Date: 09/07/18 Principal diagnosis: Acute inferior RI This is a pleasant 68-year-old gentleman who presented to the hospital with chest discomfort and was diagnosed with acute inferior/posterior RI. He underwent an emergent heart catheterization and was found to have disease involving the left circumflex was possible thrombus/dissection of the left circumflex. He underwent stenting of the left circumflex which was very complex. On follow-up with the patient today, 09/07/2018, he is feeling better. His chest pain free. He continues to be in atrial fibrillation was controlled heart rate. He is on triple therapy. He would like to be discharged home. Objective - Vital Signs Vital signs: Vital Signs Temp 98.1 F 09/07/18 07:57 Pulse 112 H 09/07/18 08:03 Resp 18 09/07/18 07:57 BP 96/63 09/07/18 07:57 Pulse Ox 94 L 09/07/18 07:57 Intake & Output 09/06/18 09/07/18 09/07/18 18:59 06:59 18:59 Intake Total 780 842 1444 Output Total 450 600 Balance 150 -300 1062 Weight 126.1 kg Intake: Oral 720 048 3170 Output: Urine 450 600 Other: Voiding Method Indwelling Catheter Indwelling Catheter # Voids 2 2 - Constitutional General appearance: Present: no acute distress - Respiratory Respiratory: bilateral: CTA - Cardiovascular Rhythm: irregularly irregular Heart sounds: normal: S1, S2 - Labs CBC & Chem 7: 09/07/18 06:50 09/07/18 06:50 Labs: Abnormal Lab Results - Last 24 Hours (Table) 09/07/18 09/07/18 Range/Units 06:50 06:50 MCV 100.9 H (80.0-100.0) fL Chloride 109 H (98-107) mmol/L Glucose 106 H (74-99) mg/dL Assessment and Plan Assessment: Assessment #1 acute inferior myocardial infarction #2 paroxysmal atrial fibrillation #3 hypotension Plan #1 continue the current medical regimen #2 the patient can be discharged home
--- NOTE | 2018-09-07 14:55 | P.DS ---
Providers Date of admission: 09/04/18 04:35 Expected date of discharge: 09/07/18 Attending physician: Hola Borjas Consults: 09/04/18 03:25 Consult Physician Stat Consulting Provider: Be Laughlin Consult Reason/Comments: STEMI ACTIVATION COMPLETE Do you want consulting provider notified?: Already Contacted 09/04/18 04:22 Consult Physician Stat Consulting Provider: Deshawn Gleason Consult Reason/Comments: STEMI Do you want consulting provider notified?: Already Contacted 09/04/18 05:35 Consult Physician Routine Consulting Provider: Be Laughlin Consult Reason/Comments: Post Interventional patient Do you want consulting provider notified?: Already Contacted Primary care physician: Kylee Newellarlo Hospital Course: Discharge diagnosis STEMI with stent placement in the left circumflex Proximal A. fib [id number] Episode of epistaxis earlier in the morning today History of coronary artery disease, status post CABG COPD not in acute exacerbation Hypertension Hyperlipidemia History of BPH Hospital course This is a pleasant 68 years old male with past medical history of coronary artery disease status post CABG, COPD, BPH. Hypertension and hyperlipidemia. Presents with chest pain. Found to have STEMI. Patient has been evaluated by legal services professional. Cardiac cath showing stenosis and thrombosis of the OM coronary branch, proximal stenosis of circumflex coronary artery and occluded venous graft to the right coronary artery.. Cardiology considering angioplasty. He is a status post stent placement Status post procedure the patient was initially put on amiodarone drip. He was later converted to oral amiodarone. His amiodarone was later DC'd and was started back on metoprolol. His metoprolol dose was decreased. His Lasix was converted to oral . Patient and the time examination on 09/07/2018 was doing okay He was not having any chest pain, he says his shortness of breath is better. He is not complaining of any cough, Is not complaining of any abdominal pain. On exam, alert and oriented x3. HEENT: Conjunctivae normal. eyes normal. NECK: No JVD. No thyroid enlargement. No LNs CARDIOVASCULAR: S1, S2 muffled. No murmur RESPIRATION: Breath sounds diminished in the bases. No rhonchi or crackles. No bronchial breathing. ABDOMEN: Soft, nontender . No guarding. no masses palpable. No ascites, No he patosplenomegaly.Bowel sounds heard. LEGS: No edema. no swelling NERVOUS SYSTEM: Cranial N 2-12 grossly normal. Moves all 4 limbs. No focal deficits. No sensory deficit. No signs of cerebellar dysfucntion. Skin: no ulcer no rash Patient will be discharged if cleared by cardiology after verifying the medications. Patient to follow-up with cardiology in the primary care at the dates outlined in the discharge summary below. Patient Condition at Discharge: Fair Plan - Discharge Summary New Discharge Prescriptions: New Furosemide [Lasix] 20 mg PO BID@0900,1600 #60 tab Atorvastatin [Lipitor] 80 mg PO HS #30 tab Metoprolol Tartrate [Lopressor] 25 mg PO BID #60 tab Clopidogrel [Plavix] 75 mg PO DAILY #30 tab Rivaroxaban [Xarelto] 15 mg PO W/SUPPER #30 tab Continue Budesonide-Formot 160-4.5 Mcg [Symbicort 160-4.5 Mcg Inhaler] 2 puff INHALATION BID Tiotropium [place] [Spiriva Respimat] 1 spray INHALATION HS Tamsulosin HCl [Flomax] 0.8 mg PO HS Aspirin EC [Ecotrin Low Dose] 81 mg PO DAILY Discontinued Simvastatin 40 mg PO HS Metoprolol Tartrate [Lopressor] 50 mg PO BID-W/MEALS Discharge Medication List Aspirin EC [Ecotrin Low Dose] 81 mg PO DAILY 09/04/18 [History] Budesonide-Formot 160-4.5 Mcg [Symbicort 160-4.5 Mcg Inhaler] 2 puff INHALATION BID 09/04/18 [History] Tamsulosin HCl [Flomax] 0.8 mg PO HS 09/04/18 [History] Tiotropium [place] [Spiriva Respimat] 1 spray INHALATION HS 09/04/18 [History] Atorvastatin [Lipitor] 80 mg PO HS #30 tab 09/07/18 [Rx] Clopidogrel [Plavix] 75 mg PO DAILY #30 tab 09/07/18 [Rx] Furosemide [Lasix] 20 mg PO BID@0900,1600 #60 tab 09/07/18 [Rx] Metoprolol Tartrate [Lopressor] 25 mg PO BID #60 tab 09/07/18 [Rx] Rivaroxaban [Xarelto] 15 mg PO W/SUPPER #30 tab 09/07/18 [Rx] Follow up Appointment(s)/Referral(s): Kylee Dean DO [Primary Care Provider] - 09/11/18 2:40 pm (Monday) Deshawn Gleason MD [STAFF PHYSICIAN] - 09/17/18 12:45 pm (Monday) Patient Instructions/Handouts: *Surgery [facility] - After Heart Catheterization - Airfreight Loading Supervisor Instructions, Left Heart Catheterization (DC) Activity/Diet/Wound Care/Special Instructions: pts 30 day copay for Shantel is $20.
[2018-09-07] MEDS: RIVAROXABAN 15 MG TAB PO SCH (17:57)
[2018-09-07] MEDS: ATORVASTATIN 80 MG TAB PO SCH (19:50)
[2018-09-08 02:20] VITALS: TEMP 98.1
[2018-09-08 05:06] VITALS: RESP 18
[2018-09-08 06:53] LABS: Basophils # (A) 0.1 k/uL (0-0.2); Basophils % (A) 1 %; Eosinophils # (A) 0.4 k/uL (0-0.7); Eosinophils % (A) 4 %; HCT 45.6 % (39.0-53.0); HGB 14.3 gm/dL (13.0-17.5); Lymphocytes # (A) 1.5 k/uL (1.0-4.8); Lymphocytes % (A) 19 %; MCH 31.6 pg (25.0-35.0); MCHC 31.3 g/dL (31.0-37.0); Macrocytosis Slight; Mean Platelet Volume 7.2; Monocytes # (A) 0.7 k/uL (0-1.0); Monocytes % (A) 9 %; Neutrophils # (A) 5.2 k/uL (1.3-7.7); Neutrophils % (A) 65 %; Platelet Count 211 k/uL (150-450); RBC 4.52 m/uL (4.30-5.90); RDW 14.4 % (11.5-15.5)
[2018-09-08 06:59] LABS: Potassium 3.8 mmol/L (3.5-5.1)
[2018-09-08] MEDS: METOPROLOL TARTRATE 25 MG TAB PO SCH (08:33)
[2018-09-08] MEDS: CLOPIDOGREL 75 MG TAB PO SCH (08:33)
[2018-09-08] MEDS: ASPIRIN 81 MG PO SCH (08:33)
[2018-09-08] MEDS: FAMOTIDINE 20 MG TAB PO SCH (08:33)
[2018-09-08] MEDS: FUROSEMIDE 20 MG TAB PO SCH (08:33)
[2018-09-08] MEDS: IPRATROPIUM-ALBUTEROL 3 ML NEB INHALATION SCH ×2 (08:39→11:44)
[2018-09-08 09:06] VITALS: BP 98/65
--- NOTE | 2018-09-08 09:15 | P.PN ---
Subjective Progress Note Date: 09/08/18 This is a pleasant 68-year-old gentleman who presented to the hospital with inferior posterior myocardial infarction, he underwent an emergent heart catheterization and was found to have disease involving the left circumflex with possible thrombus/dissection of the circumflex artery. Subsequently he underwent stenting of the circumflex. He was seen and examined today on the cardiac unit. Sitting up in the chair at bedside. He denies any chest discomfort, still mildly short of breath but overall breathing is significantly improved according to the patient. Blood pressure 94/60 with a heart rate of 90, 94% on room air. White blood cell count 9.2, hemoglobin 13.9, platelet count 190. Sodium 138, potassium 4.1, BUN 14 and creatinine 1.0. The patient continues to be in atrial fibrillation, early this morning heart rate in the 1 teens, at present his heart rate is 90. 09/08/2018 Patient seen and examined this morning, feels well, denies any chest pain or difficulty in breathing. He is quite eager to be discharged home today. His blood pressure this morning 98/60 with a heart rate in the 90s, 92% on room air. White blood cell count 8.0, hemoglobin 14.3, platelet count 211. Sodium 139, potassium 3.8, BUN 20 and creatinine 1.2. Objective - Vital Signs Vital signs: Vital Signs Temp 98.1 F 09/08/18 08:00 Pulse 96 09/08/18 08:52 Resp 18 09/08/18 08:00 BP 98/65 09/08/18 08:00 Pulse Ox 92 L 09/08/18 08:41 Intake & Output 09/07/18 09/08/18 09/08/18 18:59 06:59 18:59 Intake Total 1284 240 Balance 1284 240 Weight 126.8 kg Intake: Oral 1284 240 Other: Voiding Method Toilet # Voids 2 3 - Exam On exam, alert and oriented x3. HEENT: Conjunctivae normal. eyes normal. NECK: No JVD. No thyroid enlargement. No LNs CARDIOVASCULAR: S1, S2 muffled. No murmur RESPIRATION: Coarse Breath sounds heard. No rhonchi or crackles. No bronchial breathing. ABDOMEN: Soft, nontender . No guarding. no masses palpable. No ascites, No hepatosplenomegaly.Bowel sounds heard. LEGS: No edema. no swelling NERVOUS SYSTEM: Cranial N 2-12 grossly normal. Moves all 4 limbs. No focal deficits. No sensory deficit. No signs of cerebellar dysfucntion. Skin: no ulcer no rash - Labs CBC & Chem 7: 09/08/18 06:16 09/08/18 06:16 Labs: Abnormal Lab Results - Last 24 Hours (Table) 09/08/18 09/08/18 Range/Units 06:16 06:16 MCV 101.0 H (80.0-100.0) fL Glucose 101 H (74-99) mg/dL Assessment and Plan Plan: Assessment and plan #1 STEMI with stent placement in the left circumflex #2 Proximal A. fib #3 Hypotension #4 History of coronary artery disease, status post CABG #5 COPD not in acute exacerbation #6 Hypertension #7 Hyperlipidemia #8 History of BPH Plan From cardiology's perspective, patient may be able to be discharged home today. We'll make him a follow-up appointment in the office post discharge. DNP note has been reviewed, I agree with a documented findings and plan of care. Patient was seen and examined.
[2018-09-08 12:33] VITALS: PULSE 93
== END 2018-09-08 14:01 | disposition home or self-care (01) | DRG 246 ==
LOC: EC 03:15 → 2SICU 04:35 → 3SCARD 09-05 21:42
PROVIDERS: ADMIT Hospitalist; ATTEND Hospitalist
PROC: 4A023N7 Measurement of Cardiac Sampling and Pressure, Left Heart, Percutaneous Approach (ICD-10-PCS; 2018-09-04)
PROC: B2111ZZ Fluoroscopy of Multiple Coronary Arteries using Low Osmolar Contrast (ICD-10-PCS; 2018-09-04)
PROC: 027036Z Dilation of Coronary Artery, One Artery with Three Drug-eluting Intraluminal Devices, Percutaneous Approach (ICD-10-PCS; principal; 2018-09-04 04:09)
PROC: 02C03ZZ Extirpation of Matter from Coronary Artery, One Artery, Percutaneous Approach (ICD-10-PCS; 2018-09-04 04:09)
DX: I21.19 ST elevation (STEMI) myocardial infarction involving other coronary artery of inferior wall (principal); R57.0 Cardiogenic shock; I25.810 Atherosclerosis of coronary artery bypass graft(s) without angina pectoris; J98.11 Atelectasis; J44.9 Chronic obstructive pulmonary disease, unspecified; I45.10 Unspecified right bundle-branch block; I48.0 Paroxysmal atrial fibrillation; E78.5 Hyperlipidemia, unspecified; F17.210 Nicotine dependence, cigarettes, uncomplicated; I10 Essential (primary) hypertension; I25.2 Old myocardial infarction; N40.0 Benign prostatic hyperplasia without lower urinary tract symptoms; R04.0 Epistaxis; Z79.51 Long term (current) use of inhaled steroids; Z79.82 Long term (current) use of aspirin; Z79.899 Other long term (current) drug therapy; Z95.1 Presence of aortocoronary bypass graft; Z95.5 Presence of coronary angioplasty implant and graft; Z83.3 Family history of diabetes mellitus; Z82.61 Family history of arthritis; Z80.42 Family history of malignant neoplasm of prostate
CPT/HCPCS: 36415; 71045; 71046; 80048; 80053; 82550; 82553; 83735; 83880; 84100; 84484; 85025; 85027; 85610; 85730; 93005; 93306; 93459; 94640; 94760; 96365; 96375; 96376; 99291; C1874

== ENCOUNTER → 2021-10-21 | Outpatient (CLI) | payer MEDICARE ==
[2021-10-21 18:33] LABS: HCT 47.9 % (39.6-50.0); HGB 15.2 g/dL (13.0-17.0); MCH 30.5 pg (27.0-32.0); MCHC 31.7 g/dL (32.0-37.0); MCV 96.2 fL (80.0-97.0); Mean Platelet Volume 10.3 fL (9.5-12.2); NRBC Per 100 WBC 0 /100 WBCS (0.0-0.0); Platelet Count 206 X 10*3/uL (140-440); RBC 4.98 X 10*6/uL (4.40-5.60); RDW 15.9 % (11.5-14.5); WBC 9.78 X 10*3/uL (4.50-10.00)
[2021-10-21 18:54] LABS: Anion Gap 13.3 mmol/L (10.00-18.00); Blood Urea Nitrogen 25.4 mg/dL (9.0-27.0); Carbon Dioxide 21.7 mmol/L (20.0-27.5); Potassium 4.3 mmol/L (3.5-5.5)
== END | disposition home or self-care (01) ==
LOC: LABWHC1 11:32
PROVIDERS: ATTEND Internal Medicine Cardiovascular Disease
DX: I50.22 Chronic systolic (congestive) heart failure (principal)
CPT/HCPCS: 36415; 80051; 83880; 84443; 84520; 85027